=== PATIENT | male | born 2000 | race Two or more races ===

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

== ENCOUNTER 2023-08-14 02:05 | Emergency (ER) | payer SELFPAY ==
[~2023-08-14] VITALS: Ht 185.4 cm; Wt 72.0 kg
[2023-08-14 02:34] VITALS: BP 137/88; PULSE 75; RESP 18; O2SAT 100
[2023-08-14] MEDS ORDERED: KETOROLAC TROMETH 60MG/2ML VIAL IM ONE (03:45)
[2023-08-14] MEDS ORDERED: ACE3T PO (03:49)
[2023-08-14] MEDS ORDERED: CYCL-837 PO (03:49)
[2023-08-14] MEDS ORDERED: DexAMETHasone SOD PHOS 10MG/1ML VIAL INJ IM ONE (04:00)
== END 2023-08-14 04:13 | disposition home or self-care (01) ==
LOC: ER 02:05
DX: M54.41 Lumbago with sciatica, right side (principal); Z79.899 Other long term (current) drug therapy
CPT/HCPCS: 72100; 96372; 99284; J1100; J1885